=== PATIENT | female | born 1980 | race Caucasian/White ===

== ENCOUNTER 2018-04-17 14:30 | Outpatient (CLI) | payer BC ==
[~2018-04-17 14:30] MED LIST: Gadobenate Dimeglumine 529 MG/1 ML (20ML VIAL) ONE
--- NOTE | 2018-04-17 19:14 | MRI ---
MRI BRAIN WITH AND WITHOUT CONTRAST: DATE: 04/17/18 HISTORY: 37-year-old female with: H53.9 - vision changes. R27.8 - loss of coordination. R20.2 - paresthesia of skin. TECHNIQUE: Multiple sequences obtained in axial, sagittal, and coronal planes; pre and post IV injection of gado linium-based contrast agent: 17 mL of Multihance. As ordered, routine MRI of the brain was performed (plus additional sagittal FLAIR). Dedicated thin s lices through the orbits were not performed. FINDINGS: At the anterior aspect of the left middle cranial fossa, there is an extra-axial fluid collection yomaira suring approximately 3 x 2.5 x 3 cm, chronically displacing the left temporal lobe posteriorly. There is no associated vasogenic edema, and no associated abnormal enhancement or solid nodule. There are multiple tiny, focal T2-hyperintense lesions in the bilateral centrum semiovale and mishra radiata. The vast material of them are a few millimeters in size. A few of them in the parietal lobes approach 1 cm in size. They do not enhance. There is no restricted diffusion. No evidence of Recent or remote intra-axial hemorrhage. Ventricles are normal in size and configuration. No midline shift. No lesions involving the normal appearing corpus callosum, brainstem, cerebellum, or middle ce rebellar peduncles, brachium pontis. There is no compression of the optic chiasm. IMPRESSION: 1. Numerous tiny bilateral cerebral white matter lesions, nonspecific. This is favored to repres ent chronic ischemic white matter changes due to microvascular atherosclerosis, significantly greater than expected for age 37 years. Clinical correlation is recommended (is there history of hypertensio n and/or diabetes mellitus?). The appearance is not classic for multiple sclerosis or other demyelina ting diseases, but those are not excluded. 2. Moderately large arachnoid cyst in the left middle cranial fossa. 3. No acute findings. ALLA Ayala POS: GRACE
== END 2018-04-17 14:31 | disposition home or self-care (01) ==
LOC: BICMRI 14:30
PROVIDERS: ATTEND Family Medicine
DX: H53.9 Unspecified visual disturbance (principal); R27.8 Other lack of coordination; R20.2 Paresthesia of skin; G93.0 Cerebral cysts
CPT/HCPCS: 70553; A9579

== ENCOUNTER 2018-06-13 12:22 | Outpatient (CLI) | payer BC ==
--- NOTE | 2018-06-13 15:34 | MRI ---
MRI THORACIC SPINE WITH AND WITHOUT CONTRAST 06/13/18 HISTORY: Abnormality seen on recent imaging. Paresthesias. Anesthesia skin. Numbness in the back and bilateral arms and hands. COMPARISON: None. FINDINGS: Multiplanar and multisequence MRI of the thoracic spine performed prior to and after the intravenous administration of contrast. There is no abnormality at the region of interest marker. No fracture. N o malalignment. There is no neural foraminal or spinal canal narrowing throughout the thoracic spine. No pleural effusion. The paraspinal musculature is symmetric. IMPRESSION: No acute abnormality of the thoracic spine. No significant neural foraminal or spinal canal narrowing . No acute fracture or malalignment. No marrow infiltrative process or evidence of malignancy. POS: GRACE
--- NOTE | 2018-06-13 15:53 | MRI ---
MRI CERVICAL SPINE WITH AND WITHOUT CONTRAST: HISTORY: Numbness in the back and bilateral arms and hands. Anesthesia of skin. White matter lesion seen on MRI brain. COMPARISON: None. TECHNIQUE: Multiplanar, multisequence MR images were obtained of the cervical spine with and without IV contrast . FINDINGS: Vertebral bodies and intervertebral disks demonstrate normal height and alignment without fracture or subluxation. No significant disk desiccation is seen. The craniocervical junction is unremarkable. The prevertebral and paraspinal soft tissues are unremarkable. The visualized cord demonstrates normal signal throughout. No abnormal enhancement is seen within th e cervical cord. No significant posterior bulge or protrusion is seen throughout the cervical spine. No neural forami nal or central canal stenosis. No posterior facet arthrosis. IMPRESSION: No significant cervical spine abnormality. POS: GRACE
== END 2018-06-13 12:23 | disposition home or self-care (01) ==
LOC: BICMRI 12:22
DX: R20.0 Anesthesia of skin (principal)
CPT/HCPCS: 72156; 72157; A9577

== ENCOUNTER 2020-03-26 07:43 | Outpatient (CLI) | payer OTHER ==
[2020-03-26 12:50] LABS: #Basophils 0.1 10x3/uL (0.0-0.2); #Eosinphils 0.3 10x3/uL (0.0-0.5); #Monocytes 0.4 10x3/uL (0.0-1.1); #Neutrophils 5.3 10x3/uL (1.5-8.4); %Basophils 0.6 % (0.0-2.0); %Eosinophils 3.8 % (0.0-6.0); %Lymphocytes 32.6 % (18.0-47.0); %Monocytes 4.4 % (0.0-10.0); %Neutrophils 58.2 % (40.0-75.0); Hemoglobin 13.4 g/dL (12.0-16.0); Mean Corpuscular HGB CONC 32.3 G/DL (32.0-36.0); Mean Corpuscular Hemoglobin 30.5 PG (27.0-33.0); Mean Corpuscular Volume 94.3 fl (80.0-100.0); Platelet Count 329 10x3/uL (130-400); RBC Distribution Width 11.8 % (11.5-14.5); White Blood Cell (WBC) Count 9.1 10x3/uL (4.5-11.0)
[2020-03-26 13:29] LABS: ALT (SGPT) 24 U/L (8-55); AST (SGOT) 21 U/L (5-34); Albumin 4.2 g/dL (3.5-5.0); Alkaline Phosphatase 97 U/L (40-110); Anion Gap 14 mmol/L (10-20); BUN (Urea Nitrogen) 12 mg/dL (7.0-18.7); Bilirubin, Total 0.4 mg/dL (0.2-1.2); Calc. Creatinine Clearance 0 mL/min (70-130); Calcium 9.4 mg/dL (7.8-10.44); Carbon Dioxide 25 mmol/L (22-29); Chloride 103 mmol/L (98-107); Globulin 2.9 g/dL (2.4-3.5); Glucose 77 mg/dL (70-105); Potassium 4.9 mmol/L (3.5-5.1); Protein, Total 7.1 g/dL (6.0-8.3); Sodium 137 mmol/L (136-145)
[2020-03-26 13:33] LABS: BHCG - Serum Negative (NEGATIVE); Pregs Control Background? CLEAR/WHITE (CLR/WHITE); Pregs Control Bar Appear? YES (CONTROL BAR)
[2020-03-26 23:46] LABS: SARS-CoV-2 MS2 Positive; SARS-CoV-2 N Gene Negative; SARS-CoV-2 S Gene Negative; SARS-CoV-2 by NAA Not Detected (NotDetected); SARS-CoV-2 orf1ab Negative
== END 2020-03-26 07:44 | disposition home or self-care (01) ==
LOC: LABBT 07:43
PROVIDERS: ATTEND Specialist
DX: Z01.812 Encounter for preprocedural laboratory examination (principal); Z20.828 Contact with and (suspected) exposure to other viral communicable diseases; R10.11 Right upper quadrant pain
CPT/HCPCS: 80053; 84703; 85025; 87635; U0003

== ENCOUNTER 2020-03-31 07:04 | Day surgery (SDC) | payer OTHER ==
[2020-03-30 12:09] VITALS: BMI 37.7
[2020-03-31] MEDS ORDERED: Acetaminophen 500 MG TAB ONE (08:19)
[2020-03-31] MEDS ORDERED: Ketorolac Tromethamine 30 MG/ML VIAL ONE (08:19)
[2020-03-31] MEDS ORDERED: Midazolam HCl 2 mg/2 ml Vial ONE (08:51)
[2020-03-31] MEDS ORDERED: Fentanyl 100 MCG/2 ML VIAL ONE ×2 (09:14→10:51)
[2020-03-31] MEDS ORDERED: Lidocaine 1% w/Epinephrine 1:100K 20 ML VIAL ONE (09:15)
[2020-03-31] MEDS ORDERED: Bupivacaine 0.25% HCL 30 ML VIAL ONE (09:15)
[2020-03-31] MEDS ORDERED: Lidocaine 1% PF 5 ML VIAL ONE (10:24)
[2020-03-31] MEDS ORDERED: PROPOFOL 200 MG/20 ML VIAL ONE (10:24)
[2020-03-31] MEDS ORDERED: Ondansetron PF 4 MG/2 ML Vial ONE ×2 (10:24→10:49)
[2020-03-31] MEDS ORDERED: Glycopyrrolate 0.2 MG/ML 5 ML SYRINGE ONE (10:24)
[2020-03-31] MEDS ORDERED: Dexamethasone 20 MG/5 ML VIAL ONE (10:24)
[2020-03-31] MEDS ORDERED: Rocuronium Bromide 10 MG/ML (10ML VIAL) ONE (10:24)
[2020-03-31] MEDS ORDERED: Sodium Chloride 0.9% 10 ML ONE (12:38)
[2020-03-31] MEDS ORDERED: Promethazine HCl 25 MG/ML VIAL ONE (12:38)
[2020-03-31] MEDS ORDERED: HYDROcodone/Acetaminophen 5/325 mg Tablet ONE (13:07)
--- NOTE | 2020-04-01 06:16 | OP ---
DATE OF PROCEDURE: 03/31/2020 PREOPERATIVE DIAGNOSIS: Biliary dyskinesia. POSTOPERATIVE DIAGNOSIS: Biliary dyskinesia. PROCEDURE PERFORMED: Laparoscopic cholecystectomy. ANESTHESIA: General endotracheal. INDICATIONS: The patient is a 39-year-old white female. She has persistent symptoms of right upper quadrant abdominal that occur primarily postprandial. She has undergone a thorough evaluation revealing no definite etiology. However, since her symptoms are in the typical location of gallbladder symptoms, I have offered the option of a laparoscopic cholecystectomy and she has elected to proceed with this. DESCRIPTION OF OPERATION: Informed consent was obtained. The patient was taken to the operating room where general endotracheal anesthesia was obtained with the patient in the supine position. The abdomen was prepped with Betadine and draped in the usual sterile fashion. 0.25% Marcaine with epinephrine was infiltrated below the umbilicus and a 10 mm infraumbilical incision was created. A Veress needle was passed through this incision into the peritoneal cavity. A pneumoperitoneum was established using carbon dioxide up to a pressure of 15 mmHg. Local anesthetic was infiltrated and 3 additional 5 mm right upper quadrant incisions were created. Through the mid incision, a 5 mm port was passed into the peritoneal cavity. The camera was passed through this port and under direct vision, an 11 port was passed through the infraumbilical incision. The camera was replaced through this port, and under direct vision, 2 additional 5 mm ports were passed through the incisions already created. The gallbladder was grasped and retracted in a cephalad direction. Minimal adhesions were bluntly stripped away from the apex of the gallbladder, and the apex was retracted laterally and inferiorly. Careful dissection was carried out to the apex of the gallbladder to identify the cystic duct and cystic artery. These were each carefully dissected circumferentially. The duct was of normal caliber. Both the duct and the artery were divided between clips, leaving 2 on the side to remain within the abdomen. The gallbladder was then dissected out of the gallbladder fossa using electrocautery and removed through the infraumbilical port site. The fascia was closed with 0 Vicryl suture and a GraNee needle. The right upper quadrant was inspected and irrigated. All irrigant was aspirated. All ports and instruments were removed under direct vision. Pneumoperitoneum was carefully evacuated. Additional local anesthetic was infiltrated into each port site. The skin edges were approximated with 4-0 Monocryl subcuticular sutures, and Dermabond was placed externally. There were no complications. The patient tolerated the procedure well and was taken to the recovery room in stable condition. FINDINGS: The patient's gallbladder was without any inflammatory change at all. The duct and artery were both small and . Cholangiogram not obtained. The surgery was performed without any blood loss without any bile leak. At the conclusion of the operation, I inspected the abdomen, revealing definite intraabdominal abnormality. The liver, stomach, omentum, small bowel, and visualized portion of the colon all appeared to be within normal limits. She tolerated the procedure well, was taken to recovery room in stable condition. Job ID: [id number]
== END 2020-03-31 14:02 | disposition home or self-care (01) ==
LOC: SDC 07:04
PROVIDERS: ATTEND Specialist
PROC: 0FT44ZZ Resection of Gallbladder, Percutaneous Endoscopic Approach (ICD-10-PCS; principal; 2020-03-31)
DX: K81.1 Chronic cholecystitis (principal); K82.8 Other specified diseases of gallbladder; Z79.899 Other long term (current) drug therapy
CPT/HCPCS: 88304; J0690; J1100; J1885; J2250; J2405; J2550; J2704; J3010; S0020